=== PATIENT | female | born 1940 | race Caucasian/White ===

== ENCOUNTER → 2021-08-14 | Outpatient (CLI) | payer MEDICARE ==
[~2021-08-14] MED LIST: ALBUTEROL2.5 MG/3 M INH; ASPIR 8181 MG PO; HYDROCHLOROTHIA25 MG PO; IPRAT-ALBUT 0.5-3 ML INH; JANUVIA100 MG PO; LOVASTATIN40 MG PO; LOVENOX SY30 MG/0.3 SQ; METFORMIN HCL500 MG PO; PAROXETINE HCL40 MG PO; PERCOCET 10-321 EACH PO; VERAPAMIL ER180 MG PO
== END ==
LOC: MAMO 10:30
DX: N64.4 Mastodynia (principal)
CPT/HCPCS: 77066; G0279